=== PATIENT | female | born 1985 | race Caucasian/White ===

== ENCOUNTER 2022-12-17 08:09 | Emergency (ER) | payer MEDICAID ==
[~2022-12-17] VITALS: Ht 165.1 cm; Wt 125.5 kg
[2022-12-17 09:05] LABS: Urine Bacteria MANY /hpf (None Seen); Urine Blood 3+ /uL (Negative); Urine Budding Yeast MODERATE /hpf (None Seen); Urine Mucus FEW (None Seen); Urine Specific Gravity 1.026 (1.001-1.035); Urine WBC 397 /hpf (0 - 5); Urine WBC Clumps PRESENT /hpf (None Seen)
[2022-12-17] MEDS ORDERED: ACETAMINOPHEN 500 MG TAB PO ONE (09:15)
[2022-12-17] MEDS: cefTRIAXone SOD 1,000 MG VL IM ONE ×2 (09:20→09:26)
[2022-12-17] MEDS ORDERED: cefTRIAXone 1GM/50ML D5W 50 ML IV ONE (09:30)
[2022-12-17] MEDS ORDERED: SODIUM CHLORIDE 0.9% 1,000 ML IV ONE ×2 (09:30→11:15)
[2022-12-17] MEDS: cefTRIAXone 1GM/50ML D5W 50 ML IV ONE ×2 (09:37→09:48)
[2022-12-17 10:06] LABS: Basophils # (auto) 0.1 10 ^3/uL (0-0.2); Basophils % (auto) 0.6 % (0.0-2.0); Eosinophils # (auto) 0.2 10 ^3/uL (0-0.8); Hematocrit 47.3 % (36.0-46.0); Hemoglobin 16.5 g/dL (12.2-16.2); Lymphocytes % (auto) 25.9 % (10.0-50.0); Mean Corpuscular Hgb Conc. 34.8 g/dL (32.0-36.0); Mean Corpuscular Volume 86.3 fL (80.0-100.0); Monocytes # (auto) 0.5 10 ^3/uL (0-1.3); Neutrophils # (auto) 7.8 10 ^3/uL (1.6-8.6); Neutrophils % (auto) 67.5 % (37.0-80.0); Nucleated Red Blood Cells % 0.2 %; Red Blood Cells 5.48 10^6/uL (4.0-5.20); Red Cell Distribution Width 13.5 % (11.8-14.3); White Blood Cell 11.6 10^3/uL (4.4-10.8)
[2022-12-17 10:34] LABS: BUN/Creatinine Ratio 14.7; Calcium 8.4 mg/dL (8.5-10.1)
[2022-12-17] MEDS ORDERED: InsuLIN REG 1unit/0.01ml Soln (100units/ml) IV ONE (10:45)
[2022-12-17] MEDS ORDERED: CEPH-510 PO (11:38)
[2022-12-17] MEDS ORDERED: ACET-1080 PO (11:38)
[2022-12-17] MEDS ORDERED: BACDST PO (11:38)
[2022-12-17 12:11] VITALS: BP 117/76
== END 2022-12-17 12:12 | disposition home or self-care (01) ==
LOC: ER 08:09
DX: N39.0 Urinary tract infection, site not specified (principal); L08.9 Local infection of the skin and subcutaneous tissue, unspecified; E11.65 Type 2 diabetes mellitus with hyperglycemia; Z79.899 Other long term (current) drug therapy
CPT/HCPCS: 36415; 80048; 81001; 81025; 82962; 85025; 96361; 96365; 96375; 99284; J0696; J1815; J7030